=== PATIENT | female | born 1950 | race Caucasian/White ===

== ENCOUNTER 2021-07-17 06:35 | Day surgery (SDC) | payer MEDICARE ==
[2021-07-10 16:57] LABS: BASOPHILS # (AUTO) 0.1 X10'3 (0-0.2); BASOPHILS % (AUTO) 0.9 % (0-1); EOSINOPHILS # (AUTO) 0.2 X10'3 (0-0.9); EOSINOPHILS % (AUTO) 2.4 % (0-6); LYMPHOCYTES # (AUTO) 2.8 X10'3 (1.1-4.8); LYMPHOCYTES % (AUTO) 36.3 % (21-51); MEAN CORPUSCULAR HEMOGLOBIN 31.7 PG (27.0-31.0); MEAN CORPUSCULAR HGB CONC 34.7 g/dL (33.0-36.5); MEAN CORPUSCULAR VOLUME 91.4 FL (78-98); MEAN PLATELET VOLUME 8.1 FL (7.4-10.4); MONOCYTES # (AUTO) 0.6 X10'3 (0-0.9); MONOCYTES % (AUTO) 7.8 % (2-12); NEUTROPHILS % (AUTO) 52.6 % (42-75); PRE OP HEMATOCRIT 42.1 % (35.0-45.0); PRE OP HEMOGLOBIN 14.6 g/dL (12.0-16.0); PRE OP PLATELET COUNT 347 X10'3 (140-440); RED CELL DISTRIBUTION WIDTH 12.3 % (11.5-14.5)
[2021-07-10 17:26] LABS: ALBUMIN 4.1 G/DL (3.4-5.0); ALKALINE PHOSPHATASE 59 IU/L (46-116); BLOOD UREA NITROGEN 17 MG/DL (7-18); BUN/CREATININE RATIO 23.9 (6.6-38.0); CREATININE 0.71 MG/DL (0.40-0.90); PRE OP BILIRUB, TOTAL 0.4 MG/DL (0.0-1.0); PRE OP SODIUM 139 MMOL/L (135-145); TOTAL CARBON DIOXIDE 26.3 MMOL/L (24-32); TOTAL PROTEIN 8.2 G/DL (6.4-8.2); eGFR 81 ML/MIN
[2021-07-10 17:49] LABS: CHLORIDE 102 MMOL/L (99-107); PRE OP ALT 44 U/L (30-65); PRE OP ANION GAP 11 (8-16); PRE OP AST 24 U/L (10-37); PRE OP GLUCOSE 120 MG/DL (70-104); PRE OP POTASSIUM 4.3 MMOL/L (3.4-5.1)
[~2021-07-17] VITALS: Ht 162.6 cm; Wt 74.8 kg
[~2021-07-17 06:35] MED LIST: ASPI-611 PO; EZET10TA48 PO; cefazolin/dext.iso 2gm/50ml IV ONE; famotidine 20mg tablet PO ONE; ringers solution, lacted 1,000 ML IV SCH
[2021-07-17] MEDS ORDERED: BUPIVAcaine 0.5% inj/PF 30 ML ONE (06:44)
[2021-07-17 07:00] VITALS: BP 161/85
[2021-07-17] MEDS ORDERED: LIDOcaine 0.5% (5mg/ml) 50ml vial ONE (08:36)
[2021-07-17] MEDS ORDERED: ringers solution, lacted 1,000 ML IV SCH (08:45)
[2021-07-17] MEDS ORDERED: proCHLORperazine 10 MG/2 ml inj IV PRN (08:45)
[2021-07-17] MEDS ORDERED: meperidine/PF 25mg/ml syringe IV PRN ×3 (08:45)
[2021-07-17] MEDS ORDERED: ondansetron/PF 4mg/2ml inj IV PRN (08:45)
[2021-07-17] MEDS ORDERED: propofol inj 20 ML IV ONE (09:18)
[2021-07-17 09:21] VITALS: BP 165/74
--- NOTE | 2021-07-17 09:21 | NUR ---
Received from OR via [facility], accompanied by Anesthesiologist DR STROUD and report given by Anesthesiologist ARABELLA DIRECTOR [employer] RESEARCH. PT AWAKE, DENIES PAIN. LEFT WRIST W/BIAS DRSG COVERING INCISION CDI. 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 Addendum: 07/17/21 at 0944 by Bella Morales RN Amended: Links added.
[2021-07-17 09:31] VITALS: BP 166/64
[2021-07-17 09:41] VITALS: BP 160/62
[2021-07-17 09:51] VITALS: BP 156/64
[2021-07-17 10:01] VITALS: BP 158/62
--- NOTE | 2021-07-17 10:11 | NUR ---
PT UP AND ABLE TO AMBULATE SAFELY, VOIDED. D/C INSTRUCTIONS GIVEN AND GONE OVER W/PT WHO VERBALIZED UNDERSTANDING. PT D/CD TO HOME VIA W/C TO PRIVATE VEHICLE W/O INCIDENT. Addendum: 07/17/21 at 1024 by Bella Morales RN Amended: Links added.
== END 2021-07-17 10:11 | disposition home or self-care (01) ==
LOC: PAS 06:35
PROVIDERS: ATTEND Orthopaedic Surgery Hand Surgery
DX: G56.02 Carpal tunnel syndrome, left upper limb (principal); F41.1 Generalized anxiety disorder; M17.0 Bilateral primary osteoarthritis of knee; I69.954 Hemiplegia and hemiparesis following unspecified cerebrovascular disease affecting left non-dominant side; Z20.822 Contact with and (suspected) exposure to COVID-19; Z79.899 Other long term (current) drug therapy; Z88.5 Allergy status to narcotic agent; Z88.1 Allergy status to other antibiotic agents; Z88.8 Allergy status to other drugs, medicaments and biological substances; Z87.891 Personal history of nicotine dependence; Z72.89 Other problems related to lifestyle; Z98.49 Cataract extraction status, unspecified eye
CPT/HCPCS: 36415; 64721; 80053; 85025; 93005; J2704; J3490; J7030; J7120; S0020; U0003; U0005; Z7506; Z7512; A4215; A4615